=== PATIENT | female | born 1975 | race African-American/Black ===

== ENCOUNTER 2017-11-18 08:42 | Emergency (ER) | payer MEDICAID ==
[~2017-11-18] VITALS: Ht 180.3 cm; Wt 148.8 kg
--- NOTE | 2017-11-18 09:23 | NUR ---
mse completed, pt d/c'd home, aci/rx x2 given.
[2017-11-18 09:32] VITALS: BP 148/82
== END 2017-11-18 09:33 | disposition home or self-care (01) ==
LOC: ER 08:42
DX: J45.909 Unspecified asthma, uncomplicated (principal); F17.200 Nicotine dependence, unspecified, uncomplicated; Z88.8 Allergy status to other drugs, medicaments and biological substances
CPT/HCPCS: A4663

== ENCOUNTER 2017-12-20 23:28 | Emergency (ER) | payer MEDICAID ==
[~2017-12-20] VITALS: Ht 180.3 cm; Wt 148.8 kg
--- NOTE | 2017-12-21 | NUR ---
To room 1B; seen and evaluated by Dr. Cruz.
--- NOTE | 2017-12-21 00:10 | NUR ---
Hot tea served. Still with dry cough.
--- NOTE | 2017-12-21 00:24 | NUR ---
Patient discharged to home in stable conditon. Written and verbal after care instructions given. Patient verbalizes understanding of instructions.
[2017-12-21 00:34] VITALS: BP 145/90
== END 2017-12-21 00:25 | disposition home or self-care (01) ==
LOC: ER 23:30
DX: J20.9 Acute bronchitis, unspecified (principal); J44.9 Chronic obstructive pulmonary disease, unspecified; Z88.8 Allergy status to other drugs, medicaments and biological substances; Z87.891 Personal history of nicotine dependence
CPT/HCPCS: 99283; A4663

== ENCOUNTER 2018-02-04 07:54 | Emergency (ER) | payer SELFPAY ==
[~2018-02-04] VITALS: Ht 175.3 cm; Wt 145.1 kg
--- NOTE | 2018-02-04 08:30 | NUR ---
Pt left before she could be given her written ACI and Rx for Albuterol Inhaler and Prednisone.
== END 2018-02-04 08:46 | disposition home or self-care (01) ==
LOC: ER 07:56
DX: J20.9 Acute bronchitis, unspecified (principal); J44.9 Chronic obstructive pulmonary disease, unspecified; F17.200 Nicotine dependence, unspecified, uncomplicated; Z88.8 Allergy status to other drugs, medicaments and biological substances
CPT/HCPCS: A4663

== ENCOUNTER 2020-07-31 14:33 | Emergency (ER) | payer MEDICAID ==
[~2020-07-31] VITALS: Ht 175.3 cm; Wt 145.1 kg
--- NOTE | 2020-07-31 15:01 | NUR ---
PATIENT WAS SEEN BY . PATIENT STATES SHE JUST HAD A COVID TEST VERY RECENTLY AND REFUSED A COVID SWAB, AWARE
--- NOTE | 2020-07-31 15:18 | NUR ---
DC, RX AND FOLLOW UP INSTRUCTIONS GIVEN AND EXPLAINED TO PATIENT WHO STATES SHE UNDERSTANDS ALL INSTRUCTIONS
[2020-07-31] MEDS ORDERED: PROM473S7 PO (15:19)
[2020-07-31] MEDS ORDERED: PRED20TA PO (15:21)
== END 2020-07-31 15:25 | disposition home or self-care (01) ==
LOC: ER 14:33
DX: J44.0 Chronic obstructive pulmonary disease with (acute) lower respiratory infection (principal); J20.9 Acute bronchitis, unspecified; Z88.8 Allergy status to other drugs, medicaments and biological substances
CPT/HCPCS: 71045; A4663

== ENCOUNTER 2020-10-02 13:05 | Emergency (ER) | payer SELFPAY ==
[~2020-10-02] VITALS: Ht 175.3 cm; Wt 145.1 kg
[~2020-10-02 13:05] MED LIST: PRED20TA PO; PROM473S7 PO
--- NOTE | 2020-10-02 13:14 | NUR ---
PT IS IN ROOM #2A. DR CLEMENTS EVALUATED THE PT.
--- NOTE | 2020-10-02 13:27 | NUR ---
PT REFUSED BREATHING TRATMENT. DR CLEMENTS NOTIFIED.
[2020-10-02] MEDS ORDERED: ALBUTEROL SULFATE 2.5 MG/3 ML NEBU NEB ONE (13:30)
[2020-10-02] MEDS ORDERED: predniSONE 20 MG TABLET PO ONE (13:45)
[2020-10-02] MEDS ORDERED: predniSONE 20 MG TABLET ONE (13:47)
[2020-10-02] MEDS ORDERED: PRED20TA PO (13:59)
--- NOTE | 2020-10-02 14:26 | NUR ---
PT WAS D/C'd TO HOME. D/C INSTRUCTIONS GIVEN TO THE PT BY DR CLEMENTS.
[2020-10-02 14:27] VITALS: BP 148/88
== END 2020-10-02 14:28 | disposition home or self-care (01) ==
LOC: ER 13:05
DX: J44.1 Chronic obstructive pulmonary disease with (acute) exacerbation (principal); Z88.8 Allergy status to other drugs, medicaments and biological substances
CPT/HCPCS: 99283; J7512; A4663

== ENCOUNTER 2021-09-16 09:41 | Emergency (ER) | payer SELFPAY ==
[~2021-09-16] VITALS: Ht 172.7 cm; Wt 145.1 kg
--- NOTE | 2021-09-16 09:57 | NUR ---
Pt eloped after MSE.
== END 2021-09-16 09:58 | disposition left against medical advice (07) ==
LOC: ER 09:41
DX: R05.9 Cough, unspecified (principal); J44.9 Chronic obstructive pulmonary disease, unspecified; R03.0 Elevated blood-pressure reading, without diagnosis of hypertension
CPT/HCPCS: A4663